=== PATIENT | female | born 1995 | race Caucasian/White ===

== ENCOUNTER 2017-03-06 12:59 | Emergency (ER) | payer OTHER ==
--- NOTE | ~2017-03-06 | CR126 ---
[facility] A Service [facility] RADIOLOGY TEXT RESULTS PATIENT: ANTOINE SANCHEZ LOCATION: SED : [birth year] UNIT #: [id number] AGE: [address]: Shavon Barone APRN SEX: F ORDER DR: [id number] [place] [address] [id number] E MR#: [id number] Acc #: [id number] NAME: ANTOINE SANCHEZ : 1995 SEX: F STUDY DATE/TIME: 03/06/2017 14:08 UNIT: SED ROOM: STUDY DESCRIPTION: CR Foot Complete Min 3 View Lt Attending Physician: Shavon Barone A.P.R.N. Ordering Physician: Shavon Barone A.P.R.N. Primary Care Physician: Solange Salomon M.D. MEDICAL IMAGING REPORT This report is preliminary unless electronic signature is present. EXAM Left foot series. DATE OF EXAM 03/06/2017 HISTORY 22-year-old female in the ED with left foot and ankle pain after injury. Stepped in a hole earlier today. TECHNIQUE 3 view left foot series. FINDINGS No fracture, dislocation or other acute osseous abnormality is demonstrated. IMPRESSION Negative left foot series. Dictated by... Ken Crow M.D. THIS IS AN ELECTRONICALLY VERIFIED REPORT Ken Crow M.D. at 03/06/2017 6:48 PM JORDAN/alexus TD: 03/06/2017 15:48 JOB #: [id number] MEDICAL IMAGING REPORT [facility] A Service [facility] RADIOLOGY TEXT RESULTS PATIENT: ANTOINE SANCHEZ LOCATION: SED : 94 UNIT #: [id number] AGE: [address]: Shavon Barone APRN SEX: F ORDER DR: Page 1 of 1
--- NOTE | ~2017-03-06 | CR20 ---
[facility]. [facility] A Service of [facility] RADIOLOGY TEXT RESULTS PATIENT: ANTOINE SANCHEZ LOCATION: SED : 94 UNIT #: [id number] AGE: [address]: Shavon Barone APRN SEX: F ORDER DR: [id number] [place] [id number] E MR#: [id number] Acc #: [id number] NAME: ANTOINE SANCHEZ : 1995 SEX: F STUDY DATE/TIME: 03/06/2017 14:08 UNIT: SED ROOM: STUDY DESCRIPTION: CR Ankle Min 3 Views Lt Attending Physician: Shavon Barone A.P.R.N. Ordering Physician: Shavon Barone A.P.R.N. Primary Care Physician: Solange Salomon M.D. MEDICAL IMAGING REPORT This report is preliminary unless electronic signature is present. EXAM Left ankle series, 03/06/2017. HISTORY 22-year-old female in the ED complaining of left foot and ankle pain after injury. Stepped in a hole today. TECHNIQUE Three-view left ankle series. FINDINGS No fracture, dislocation, or other acute osseous abnormalities demonstrated. Soft tissue swelling is present over the lateral malleolus. IMPRESSION Lateral soft tissue swelling. Left ankle series is otherwise negative. Dictated by... Ken Crow M.D. THIS IS AN ELECTRONICALLY VERIFIED REPORT Ken Crow M.D. at 03/06/2017 6:48 PM TOSHIAW/victorino TD: 03/06/2017 15:56 JOB #: [id number] MEDICAL IMAGING REPORT Page 1 of 1
[~2017-03-06 12:59] MED LIST: AMOXICILLIN PO; ANXIETY MED; BACTRIM DS PO; BIRTH CONTROL PILL; CIPRO PO; PHENERGAN25 MG PO; PYRIDIUM PO
[2017-03-06] MEDS ORDERED: ZOLOFT (13:02)
== END 2017-03-06 15:48 | disposition home or self-care (01) ==
LOC: SED 12:59
DX: S93.422A Sprain of deltoid ligament of left ankle, initial encounter (principal); X50.1XXA Overexertion from prolonged static or awkward postures, initial encounter; Y92.009 Unspecified place in unspecified non-institutional (private) residence as the place of occurrence of the external cause
CPT/HCPCS: 29405; 73610; 73630; 99283